=== PATIENT | female | born 1985 | race Caucasian/White ===

== ENCOUNTER 2017-01-11 09:31 | Emergency (ER) | payer MEDICAID ==
[~2017-01-11] VITALS: Ht 167.6 cm; Wt 104.4 kg
[2017-01-11 09:38] VITALS: BP 116/70
--- NOTE | 2017-01-11 09:50 | NUR ---
PATIENT PRESENTS TO ED WITH C/O SOB SINCE LAST NIGHT. DENIES N/V/D; SKIN IS PINK/WARM/DRY; AAOX4 WITH EVEN AND STEADY GAIT; HR EVEN AND REGULAR; PT DENIES ANY FEVER, CP AT THIS TIME. PT C/O COUGH, PRODUCTIVE. PATIENT STATES PAIN OF 0/10 AT THIS TIME; VSS; PATIENT POSITIONED FOR COMFORT; HOB ELEVATED; BEDRAILS UP X2; BED DOWN. ER MD MADE AWARE OF PT STATUS.
--- NOTE | 2017-01-11 09:52 | NUR ---
PT SATTING AT 96% ON ROOM AIR. WILL CONTINUE TO MONITOR.
--- NOTE | 2017-01-11 10:50 | NUR ---
CHECKED ON PT. PT IS AAOX4, NO ACUTE DISTRESS AT THIS TIME. O2 SAT: 97% ON ROOM AIR. WILL CONTINUE TO MONITOR.
--- NOTE | 2017-01-11 10:53 | NUR ---
AWAITING MD PARKS AT THIS TIME.
--- NOTE | 2017-01-11 11:10 | NUR ---
PT AMBULATED TO RESTROOM WITH STEADY GAIT, PT IS NOW BACK IN BED. WILL CONTINUE TO MONITOR.
[2017-01-11] MEDS ORDERED: ALBUTEROL SULFATE/IPRATROPIU 3 ML SOL IH ONE (11:15)
--- NOTE | 2017-01-11 11:17 | NUR ---
DR. CHAPIN PRESENT AT BEDSIDE.
[2017-01-11] MEDS ORDERED: PROMETH/CODEINE 6.25-10MG/5ML 5 ML UDC PO ONE (11:25)
--- NOTE | 2017-01-11 11:28 | NUR ---
RT PRESENT AT BEDSIDE FOR BREATHING TX.
--- NOTE | 2017-01-11 12:05 | NUR ---
PT TO RADIOLOGY VIA WHEELCHAIR.
--- NOTE | 2017-01-11 12:13 | NUR ---
PT BACK FROM RADIOLOGY.
[2017-01-11 13:13] LABS: APPEARANCE,URINE HAZY (CLEAR); BILIRUBIN,URINE NEGATIVE (NEGATIVE); BLOOD, URINE 3+ (NEGATIVE); COLOR,URINE YELLOW (YELLOW); LEUKOCYTE ESTERASE ,URINE 2+ (NEGATIVE); NITRITE, URINE NEGATIVE (NEGATIVE); PROTEIN,URINE NEGATIVE (NEGATIVE); UGLUCOSE NEGATIVE (NEGATIVE); UROBILINOGEN,URINE 0.2 EU/dL (0.2 - 1)
[2017-01-11 13:37] LABS: BACTERIA,URINE 1+ /HPF (None Seen); MUCUS,URINE 2+ /LPF (None Seen); SQUAMOUS EPITHELIAL CELL,UR 20-50 /LPF (0-3 (FEW))
[2017-01-11 14:29] VITALS: BP 107/67
--- NOTE | 2017-01-11 14:30 | NUR ---
Patient discharged with v/s stable. Written and verbal after care instructions given and explained. Patient alert, oriented and verbalized understanding of instructions. Ambulatory with steady gait. All questions addressed prior to discharge. ID band removed. Patient advised to follow up with PMD. Rx of ALBUTEROL, PHENERGEN/CODEINE given. Patient educated on indication of medication including possible reaction and side effects. Opportunity to ask questions provided and answered.
== END 2017-01-11 14:30 | disposition home or self-care (01) ==
LOC: MED 09:31
DX: J98.01 Acute bronchospasm (principal); R82.71 Bacteriuria; Z77.098 Contact with and (suspected) exposure to other hazardous, chiefly nonmedicinal, chemicals
CPT/HCPCS: 71020; 81001; 81025; 87086; 94640; 99285; J7620

== ENCOUNTER 2017-06-04 06:20 | Emergency (ER) | payer MEDICAID ==
[~2017-06-04] VITALS: Ht 167.6 cm; Wt 114.3 kg
[2017-06-04 06:27] VITALS: BP 116/74
[2017-06-04] MEDS ORDERED: KETOROLAC 60 MG/2 ML VIAL IM ONE (07:35)
[2017-06-04 08:05] VITALS: BP 104/69
== END 2017-06-04 08:06 | disposition home or self-care (01) ==
LOC: MED 06:20
DX: N39.0 Urinary tract infection, site not specified (principal); Z90.49 Acquired absence of other specified parts of digestive tract
CPT/HCPCS: 81002; 81025; 96372; 99283; J1885

== ENCOUNTER 2021-05-03 10:12 | Emergency (ER) | payer SELFPAY ==
[~2021-05-03] VITALS: Ht 167.6 cm; Wt 104.3 kg
[2021-05-03 10:13] VITALS: BP 128/89
--- NOTE | 2021-05-03 10:48 | NUR ---
36 Y/O F BIB SELF FROM HOME, PATIENT PRESENTS TO ED WITH PELVIC PAIN THAT STARTED THIS AM. PT STATES SHE TOOK A TEST THIS MONTH AND WAS CONCERNED WITH THE PAIN. DENIES VAGINAL BLEEDING OR DISCHARGE. DENIES N/V/D; SKIN IS PINK/WARM/DRY; AAOX4 WITH EVEN AND STEADY GAIT; LUNGS CLEAR BL; HR EVEN AND REGULAR; PT DENIES ANY FEVER, CP, SOB, OR COUGH AT THIS TIME; PATIENT STATES PAIN OF 9/10 AT THIS TIME; VSS; PATIENT POSITIONED FOR COMFORT; HOB ELEVATED; BEDRAILS UP X2; BED DOWN. ER MD MADE AWARE OF PT STATUS. PMH: DENIES NKA
[2021-05-03 11:11] LABS: APPEARANCE,URINE CLEAR (CLEAR); BILIRUBIN,URINE NEGATIVE (NEGATIVE); BLOOD, URINE NEGATIVE (NEGATIVE); COLOR,URINE YELLOW (YELLOW); LEUKOCYTE ESTERASE ,URINE NEGATIVE (NEGATIVE); NITRITE, URINE NEGATIVE (NEGATIVE); UGLUCOSE NEGATIVE (NEGATIVE)
[2021-05-03 12:32] VITALS: BP 128/89
--- NOTE | 2021-05-03 12:32 | NUR ---
Patient discharged with v/s stable. Written and verbal after care instructions given and explained. Patient verbalized understanding. Ambulatory with steady gait. All questions addressed prior to discharge. Advised to follow up with PMD.
== END 2021-05-03 12:32 | disposition home or self-care (01) ==
LOC: MED 10:12
DX: O20.8 Other hemorrhage in early pregnancy (principal)
CPT/HCPCS: 76801; 81003; 81025; 99284

== ENCOUNTER 2022-06-12 07:34 | Emergency (ER) | payer OTHER ==
[~2022-06-12] VITALS: Ht 167.6 cm; Wt 111.1 kg
[2022-06-12 07:37] VITALS: BP 134/91
[2022-06-12] MEDS ORDERED: NACL 0.9% 1,000 ML IV ONE (08:15)
[2022-06-12] MEDS ORDERED: ONDANSETRON 4 MG/2 ML VIAL IVP ONE (08:15)
[2022-06-12] MEDS ORDERED: diphenhydrAMINE 50 MG/ML VIAL IVP ONE (08:15)
[2022-06-12] MEDS ORDERED: KETOROLAC 30 MG/ML VIAL IVP ONE (08:15)
[2022-06-12] MEDS ORDERED: IBUP-2213 PO (09:15)
[2022-06-12] MEDS ORDERED: ONDA-188 PO (09:15)
[2022-06-12] MEDS ORDERED: ONDANSETRON 4 MG/2 ML VIAL ONE (09:37)
[2022-06-12] MEDS ORDERED: KETOROLAC 30 MG/ML VIAL ONE (09:37)
[2022-06-12] MEDS ORDERED: diphenhydrAMINE 50 MG/ML VIAL ONE (09:37)
--- NOTE | 2022-06-12 10:02 | NUR ---
37 y/o female, c/o rivera and nausea that started 3 days ago, pain worsened this morning. pt denies any vomiting or diarrhea. denies cough, sob, fever or chills. pt a&ox4 with steady gait, pt states she has been sensitive to bright lights. room lights have been dimmed at this time. pmh: denies nka
--- NOTE | 2022-06-12 11:14 | NUR ---
Patient appears to be resting comfortably in bed. Vital Signs within normal limits. Respirations even and unlabored.
[2022-06-12 12:14] VITALS: BP 114/68
--- NOTE | 2022-06-12 12:15 | NUR ---
Patient discharged with v/s stable. Written and verbal after care instructions given and explained. Patient alert, oriented and verbalized understanding of instructions. Ambulatory to car. All questions addressed prior to discharge. ID band removed. Patient advised to follow up with PMD. Rx of ibuprofen, zofran (sent) given. Patient educated on indication of medication including possible reaction and side effects. Opportunity to ask questions provided and answered. work note given
== END 2022-06-12 12:15 | disposition home or self-care (01) ==
LOC: MED 07:34
DX: G43.909 Migraine, unspecified, not intractable, without status migrainosus (principal); Z79.899 Other long term (current) drug therapy
CPT/HCPCS: 96361; 96374; 96375; 99284; J1200; J1885; J2405; J7030

== ENCOUNTER 2022-06-22 02:20 | Emergency (ER) | payer OTHER ==
[~2022-06-22] VITALS: Ht 167.6 cm; Wt 111.6 kg
[~2022-06-22 02:20] MED LIST: IBUP-2213 PO; ONDA-188 PO
[2022-06-22 02:23] VITALS: BP 120/72
--- NOTE | 2022-06-22 02:28 | NUR ---
PT TO BED 5
--- NOTE | 2022-06-22 02:42 | NUR ---
37YR OLD FEMALE BIB SELF C/O CP X1DAY. PAIN RADIATES FROM LEFT OF CHEST TO BACK. PAIN LEVEL 3/10 WITH SOB. RESP EVEN AND UNLABORED. DENIES COUGH FEVER V/D. HOB ELEVATED. BED AT LOWEST POSITION. NKDA NO MED HX
--- NOTE | 2022-06-22 02:59 | NUR ---
XRAY AT BEDSIDE
[2022-06-22] MEDS ORDERED: KETOROLAC 30 MG/ML VIAL IM ONE (04:10)
[2022-06-22] MEDS ORDERED: hydrOXYzine PAMOATE 25 MG CAP PO ONE (04:10)
--- NOTE | 2022-06-22 04:47 | NUR ---
PATIENT IN BED RESTING . RESP EVEN AND UNLABORED. PT IS PAIN FREE AT THIS TIME. MEDS GIVEN AND TOLERATED. BED AT LOWEST POSITION.
[2022-06-22] MEDS ORDERED: HYDR25CA1 PO (05:57)
[2022-06-22] MEDS ORDERED: IBUP-2213 PO (05:57)
--- NOTE | 2022-06-22 06:05 | NUR ---
LABS COLLECTED AT BEDSIDE AND SENT TO LAB
--- NOTE | 2022-06-22 06:36 | NUR ---
PT AWAKE RESTING ON BEDSIDE MONITOR. CURRENTLY DENIES PAIN. VS WNL. PENDING LAB RESULTS.
[2022-06-22 06:43] LABS: CARBON DIOXIDE 24.9 mmol/L (21-32); CREATININE 0.8 mg/dL (0.6-1.3); POTASSIUM 3.9 mmol/L (3.5-5.1)
[2022-06-22 06:57] LABS: LIPASE 354 U/L (73-393)
[2022-06-22 06:58] LABS: BASOPHILS % (AUTO) 0.5 % (0.0-2.0); EOSINOPHILS # (AUTO) 0.2 K/uL (0-0.4); EOSINOPHILS % (AUTO) 2.2 % (0.0-4.0); LYMPHOCYTES % (AUTO) 28.5 % (20.5-51.1); MEAN CORPUSCULAR HEMOGLOBIN 30 pg (27-31); MEAN CORPUSCULAR HGB CONC 33 g/dL (33-37); MEAN CORPUSCULAR VOLUME 89.3 fL (80-94); MONOCYTES # (AUTO) 0.5 K/uL (0.8-1.0); MONOCYTES % (AUTO) 7.1 % (1.7-9.3); NEUTROPHILS # (AUTO) 4.3 K/uL (1.8-7.7); NEUTROPHILS % (AUTO) 61.7 % (42.2-75.2); PLATELET COUNT (AUTO) 265 K/uL (140-450); RED CELL DISTRIBUTION WIDTH 14.5 % (11.6-13.7); WHITE BLOOD COUNT (AUTO) 7.1 K/uL (4.8-10.8)
[2022-06-22 07:17] VITALS: BP 125/77
--- NOTE | 2022-06-22 07:17 | NUR ---
Patient discharged with v/s stable. Written and verbal after care instructions given and explained. Patient alert, oriented and verbalized understanding of instructions. Ambulatory with steady gait. All questions addressed prior to discharge. ID band removed. Patient advised to follow up with PMD. Rx of VISTARIL IBUPROFEN given.
== END 2022-06-22 07:17 | disposition home or self-care (01) ==
LOC: MED 02:20
DX: R07.89 Other chest pain (principal)
CPT/HCPCS: 36415; 71045; 80048; 81025; 83690; 84484; 85025; 93005; 96372; 99285; J1885; Q0092; Q0177

== ENCOUNTER 2022-12-22 16:49 | Emergency (ER) | payer MEDICAID, OTHER ==
[~2022-12-22] VITALS: Ht 167.6 cm; Wt 105.2 kg
[~2022-12-22 16:49] MED LIST changes: +HYDR25CA1 PO
[2022-12-22 17:11] VITALS: BP 117/70
[2022-12-22] MEDS ORDERED: ONDANSETRON 4 MG ODT PO ONE (17:15)
--- NOTE | 2022-12-22 17:36 | NUR ---
PT DRINKING APPLE JUICE AT THIS TIME WITH NO DISTRESS NOTED
[2022-12-22] MEDS ORDERED: ONDA-188 SL (17:49)
--- NOTE | 2022-12-22 20:16 | NUR ---
D/C via court interpreter no : [id number]
[2022-12-22 20:20] VITALS: BP 119/70
== END 2022-12-22 20:20 | disposition home or self-care (01) ==
LOC: MED 16:49
DX: B34.9 Viral infection, unspecified (principal); Z20.822 Contact with and (suspected) exposure to COVID-19; Z79.899 Other long term (current) drug therapy
CPT/HCPCS: 87426; 87804; 99283; Q0162

== ENCOUNTER 2023-10-29 11:23 | Emergency (ER) | payer MEDICAID, OTHER ==
[~2023-10-29] VITALS: Ht 167.6 cm; Wt 110.2 kg
[~2023-10-29 11:23] MED LIST changes: +ONDA-188 SL
[2023-10-29 11:47] VITALS: BP 124/77; PULSE 76; RESP 16; TEMP 98; O2SAT 100
[2023-10-29] MEDS: KETOROLAC 30 MG/ML VIAL IM ONE (13:12)
[2023-10-29] MEDS: ACETAMINOPHEN EXTRA STRENGTH 500 MG TAB PO ONE (13:13)
[2023-10-29] MEDS: METOCLOPRAMIDE 10 MG TAB PO ONE (13:13)
[2023-10-29 13:41] LABS: BASOPHILS % (AUTO) 0.5 % (0.0-2.0); EOSINOPHILS # (AUTO) 0.1 K/uL (0-0.4); EOSINOPHILS % (AUTO) 0.8 % (0.0-4.0); HEMATOCRIT 34.5 % (36-48); HEMOGLOBIN 11.7 g/dL (12.0-16.0); LYMPHOCYTES # (AUTO) 2.2 K/uL (2.5-16.5); LYMPHOCYTES % (AUTO) 20.4 % (20.5-51.1); MEAN CORPUSCULAR HEMOGLOBIN 31 pg (27-31); MEAN CORPUSCULAR HGB CONC 34 g/dL (33-37); MONOCYTES # (AUTO) 0.8 K/uL (0.8-1.0); MONOCYTES % (AUTO) 7.3 % (1.7-9.3); NEUTROPHILS # (AUTO) 7.6 K/uL (1.8-7.7); PLATELET COUNT (AUTO) 277 K/uL (140-450); RED BLOOD CELL COUNT(AUTO) 3.84 MIL/uL (4.20-5.40); RED CELL DISTRIBUTION WIDTH 13.7 % (11.6-13.7); WHITE BLOOD COUNT (AUTO) 10.7 K/uL (4.8-10.8)
[2023-10-29 13:48] LABS: ANION GAP 10.2 (8-16); CALCIUM 8.7 mg/dL (8.5-10.1); CARBON DIOXIDE 28.6 mmol/L (21-32); CREATININE 0.8 mg/dL (0.6-1.3); POTASSIUM 3.8 mmol/L (3.5-5.1)
[2023-10-29 14:06] VITALS: BP 120/77; PULSE 75; RESP 18; TEMP 98; O2SAT 100
== END 2023-10-29 14:06 | disposition home or self-care (01) ==
LOC: MED 11:23
DX: J06.9 Acute upper respiratory infection, unspecified (principal); Z79.899 Other long term (current) drug therapy
CPT/HCPCS: 36415; 80048; 81025; 85025; 96372; 99283; J1885; J8597

== ENCOUNTER 2024-03-08 16:40 | Emergency (ER) | payer OTHER ==
[~2024-03-08] VITALS: Ht 167.6 cm; Wt 113.4 kg
[2024-03-08 17:00] VITALS: BP 109/67; PULSE 80; TEMP 97.6; O2SAT 98
[2024-03-08] MEDS: ACETAMINOPHEN 325 MG TAB PO ONE (17:39)
[2024-03-08 17:51] LABS: APPEARANCE,URINE CLEAR (CLEAR); BILIRUBIN,URINE NEGATIVE (NEGATIVE); BLOOD, URINE NEGATIVE (NEGATIVE); COLOR,URINE YELLOW (YELLOW); LEUKOCYTE ESTERASE ,URINE 3+ (NEGATIVE); NITRITE, URINE NEGATIVE (NEGATIVE); PROTEIN,URINE NEGATIVE (NEGATIVE); UGLUCOSE NEGATIVE (NEGATIVE); UROBILINOGEN,URINE 0.2 EU/dL (0.2 - 1)
[2024-03-08 17:59] LABS: BACTERIA,URINE FEW /HPF (None Seen); RBC,URINE 0-5 /HPF (0-5); SQUAMOUS EPITHELIAL CELL,UR >10 (MANY) /LPF (0-3 (FEW))
[2024-03-08 18:00] LABS: MUCUS,URINE None Seen /LPF (None Seen)
[2024-03-08 18:08] VITALS: O2SAT 98
[2024-03-08 18:33] LABS: BASOPHILS % (AUTO) 0.4 % (0.0-2.0); EOSINOPHILS # (AUTO) 0.2 K/uL (0-0.4); HEMATOCRIT 34.1 % (36-48); HEMOGLOBIN 11.6 g/dL (12.0-16.0); LYMPHOCYTES # (AUTO) 2.1 K/uL (2.5-16.5); LYMPHOCYTES % (AUTO) 22.7 % (20.5-51.1); MEAN CORPUSCULAR HEMOGLOBIN 31 pg (27-31); MEAN CORPUSCULAR HGB CONC 34 g/dL (33-37); MEAN CORPUSCULAR VOLUME 92.5 fL (80-94); MONOCYTES # (AUTO) 0.5 K/uL (0.8-1.0); MONOCYTES % (AUTO) 5.3 % (1.7-9.3); NEUTROPHILS # (AUTO) 6.5 K/uL (1.8-7.7); NEUTROPHILS % (AUTO) 69.6 % (42.2-75.2); PLATELET COUNT (AUTO) 211 K/uL (140-450); RED BLOOD CELL COUNT(AUTO) 3.69 MIL/uL (4.20-5.40); RED CELL DISTRIBUTION WIDTH 14.5 % (11.6-13.7); WHITE BLOOD COUNT (AUTO) 9.4 K/uL (4.8-10.8)
[2024-03-08 18:58] LABS: ALBUMIN 3.1 g/dL (3.4-5.0); BILIRUBIN,DIRECT 0.1 mg/dL (0.0-0.3); TOTAL BILIRUBIN 0.2 mg/dL (0.0-1.0); TOTAL PROTEIN, SERUM 7.1 g/dL (6.4-8.2)
[2024-03-08 19:14] LABS: ANION GAP 17.6 (8-16); CALCIUM 9.1 mg/dL (8.5-10.1); CARBON DIOXIDE 20.1 mmol/L (21-32); CREATININE 0.7 mg/dL (0.6-1.3); POTASSIUM 3.7 mmol/L (3.5-5.1)
[2024-03-08 19:24] VITALS: O2SAT 98
[2024-03-08] MEDS ORDERED: CEPH-588 PO (19:30)
[2024-03-08] MEDS ORDERED: ACET-2619 PO (19:30)
[2024-03-08] MEDS: cephALEXin 500 MG CAP PO ONE (19:39)
== END 2024-03-08 19:40 | disposition home or self-care (01) ==
LOC: MED 16:40
DX: O23.41 Unspecified infection of urinary tract in pregnancy, first trimester (principal); N39.0 Urinary tract infection, site not specified; Z3A.09 9 weeks gestation of pregnancy; Z79.899 Other long term (current) drug therapy
CPT/HCPCS: 36415; 76801; 80048; 80076; 81001; 81025; 83690; 84702; 85025; 87086; 99284; Q0092